=== PATIENT | female | born 2000 | race African-American/Black ===

== ENCOUNTER 2023-09-01 17:33 | Emergency (ER) | payer MEDICAID ==
[~2023-09-01] VITALS: Ht 167.6 cm; Wt 68.0 kg
[2023-09-01 17:38] VITALS: O2SAT 97
[2023-09-01] MEDS ORDERED: CYCL10TA21 MT (19:02)
[2023-09-01] MEDS ORDERED: IBUP-2028 MT (19:02)
[2023-09-01 19:15] VITALS: BP_DIAS 84
[2023-09-01] MEDS ORDERED: KETOROLAC 60MG/2ML VIAL IM ONE (19:15)
[2023-09-01 19:34] VITALS: BP_SYST 131; PULSE 78; RESP 16; TEMP 98.1
== END 2023-09-01 19:37 | disposition home or self-care (01) ==
LOC: ER 17:33
DX: M54.2 Cervicalgia (principal); R07.89 Other chest pain; Z88.6 Allergy status to analgesic agent; V98.8XXA Other specified transport accidents, initial encounter; Y93.89 Activity, other specified; Y92.89 Other specified places as the place of occurrence of the external cause; Y99.8 Other external cause status
CPT/HCPCS: 71045; 96372; 99283; J1885; Z7610